=== PATIENT | male | born 1980 | race Caucasian/White ===

== ENCOUNTER 2016-10-01 02:04 | Emergency (ER) | payer OTHER ==
[~2016-10-01] VITALS: Ht 172.7 cm; Wt 61.4 kg
[2016-10-01 02:06] VITALS: Ht 172.7 cm; Wt 61.4 kg
--- NOTE | 2016-10-01 02:30 | EMERGENCY ROOM VISIT NOTE ---
History Report prepared by Gwenibtony: Hayder Waite Under the Supervision of: Dr. Ramiro Chahal D.O. First contact with patient: 02:12 Chief Complaint: MENTAL HEALTH EVALUATION Stated Complaint: BEING FOLLOWED BY NUMEROUS TRUCK FROM NEIGHBORHOOD History of Present Illness The patient is a 36 year old male who presents to the Emergency Room via [facility] Police Officers for a mental health evaluation after being found wandering around [facility] just prior to arrival. The [place] that [place] [address] because he was trying to lose a group of "trucks" who he state have been following him for the past week. The patient states that he has been being followed by a group of trucks, because they are trying to intimidate him. He believes that they may be following him because of his ex- girlfriend. The patient believed that he lost his vehicle in [place], but State Police state that they drove around for 45 minutes and were not able to locate the vehicle. The patient admits to abusing prescription narcotics. He denies any other medical issues at this time. Source of History: patient, police Onset: Just prior to arrival Position: other (Psych) Quality: other (Mental Health Evaluation) Associated Symptoms: No LOC, No fevers Review of Systems See HPI for pertinent positives and negatives. A total of ten systems were reviewed and were otherwise negative. Past Medical & Surgical Medical Problems: (1) Hx of low back pain Family History Hypertension Social History Smoking Status: Current Every Day Smoker Drug Use: other (Narcotis, poly drug abuse) Marital Status: single Housing Status: lives alone Occupation Status: employed Current/Historical Medications No Active Prescriptions or Reported Meds Allergies Coded Allergies: No Known Allergies (Unverified , 10/01/16) Physical Exam Vital Signs Date Time Temp Pulse Resp B/P Pulse Ox O2 Delivery O2 Flow Rate FiO2 10/01/16 03:43 36.8 70 137/99 94 Room Air 10/01/16 02:06 36.5 80 18 137/102 98 Room Air Physical Exam GENERAL: Awake, alert, well-appearing, in no distress HENT: Normocephalic, atraumatic. Oropharynx unremarkable. EYES: Normal conjunctiva. Sclera non-icteric. NECK: Supple. No nuchal rigidity. FROM. No JVD. RESPIRATORY: Clear to auscultation. CARDIAC: Regular rate, normal rhythm. Extremities warm and well perfused. Pulses equal. ABDOMEN: Soft, non-distended. No tenderness to palpation. No rebound or guarding. No masses. RECTAL: Deferred. MUSCULOSKELETAL: Chest examination reveals no tenderness. The back is symmetrical on inspection without obvious abnormality. There is no CVA tenderness to palpation. No joint edema. LOWER EXTREMITIES: Calves are equal size bilaterally and non-tender. No edema. No discoloration. NEURO: Normal sensorium. No sensory or motor deficits noted. SKIN: No rash or jaundice noted. PSYCH: Patient is paranoid and very anxious on examination. Medical Decision & Procedures ER Provider Diagnostic Interpretation: X ray results as stated below per my interpretation and radiologist interpretation. Other radiology results as stated below per my review and radiologist interpretation CT HEAD: No intracranial hemorrhage or skull fracture. Radiologist: Martínez Sanders M.D. Laboratory Results 10/01/16 02:40 Red Blood Count 4.95, Mean Corpuscular Volume 94.5, Mean Corpuscular Hemoglobin 34.1, Mean Corpuscular Hemoglobin Concent 36.1, Mean Platelet Volume 10.6, Neutrophils (%) (Auto) 79.7, Lymphocytes (%) (Auto) 14.4, Monocytes (%) (Auto) 5.4, Eosinophils (%) (Auto) 0.1, Basophils (%) (Auto) 0.2, Neutrophils # (Auto) 9.55, Lymphocytes # (Auto) 1.72, Monocytes # (Auto) 0.65, Eosinophils # (Auto) 0.01, Basophils # (Auto) 0.02 10/01/16 02:40 Test 10/01/16 02:40 10/01/16 02:48 White Blood Count 11.97 K/uL (4.8-10.8) Red Blood Count 4.95 M/uL (4.7-6.1) Hemoglobin 16.9 g/dL (14.0-18.0) Hematocrit 46.8 % (42-52) Mean Corpuscular Volume 94.5 fL (80-100) Mean Corpuscular Hemoglobin 34.1 pg (25-34) Mean Corpuscular Hemoglobin Concent 36.1 g/dl (32-36) Platelet Count 227 K/uL (130-400) Mean Platelet Volume 10.6 fL (7.4-10.4) Neutrophils (%) (Auto) 79.7 % Lymphocytes (%) (Auto) 14.4 % Monocytes (%) (Auto) 5.4 % Eosinophils (%) (Auto) 0.1 % Basophils (%) (Auto) 0.2 % Neutrophils # (Auto) 9.55 K/uL (1.4-6.5) Lymphocytes # (Auto) 1.72 K/uL (1.2-3.4) Monocytes # (Auto) 0.65 K/uL (0.11-0.59) Eosinophils # (Auto) 0.01 K/uL (0-0.5) Basophils # (Auto) 0.02 K/uL (0-0.2) RDW Standard Deviation 40.8 fL (36.4-46.3) RDW Coefficient of Variation 12.0 % (11.5-14.5) Immature Granulocyte % (Auto) 0.2 % Immature Granulocyte # (Auto) 0.02 K/uL (0.00-0.02) Urine Color DK YELLOW Urine Appearance CLEAR (CLEAR) Urine pH 5.5 (4.5-7.5) Urine Specific [place] 1.023 (1.000-1.030) Urine Protein 1+ (NEG) Urine Glucose (UA) NEG (NEG) Urine Ketones 1+ (NEG) Urine Occult Blood NEG (NEG) Urine Nitrite NEG (NEG) Urine Bilirubin NEG (NEG) Urine Urobilinogen NEG (NEG) Urine Leukocyte Esterase NEG (NEG) Urine WBC (Auto) 1-5 /hpf (0-5) Urine RBC (Auto) 0-4 /hpf (0-4) Urine Hyaline Casts (Auto) 5-10 /lpf (0-5) Urine Epithelial Cells (Auto) >30 /lpf (0-5) Urine Bacteria (Auto) NEG (NEG) Urine Renal Epithelial Cells /lpf (0-5) Urine Pathogenic Casts /lpf (0) Urine Mucus PRESENT (NONE PRSENT) Anion Gap 9.0 mmol/L (3-11) Est Creatinine Clear Calc Drug Dose 73.2 ml/min Estimated GFR () 89.0 Estimated GFR (Non- 76.8 BUN/Creatinine Ratio 11.2 (10-20) Calcium Level 9.3 mg/dl (8.5-10.1) Total Bilirubin 1.2 mg/dl (0.2-1) Direct Bilirubin 0.3 mg/dl (0-0.2) Aspartate Amino Transf (AST/SGOT) 32 U/L (15-37) Alanine Aminotransferase (ALT/SGPT) 34 U/L (12-78) Alkaline Phosphatase 67 U/L (45-117) Total Protein 8.1 gm/dl (6.4-8.2) Albumin 4.9 gm/dl (3.4-5.0) Thyroid Stimulating Hormone (TSH) 1.420 uIu/ml (0.300-4.500) Urine Opiates Screen POS (NEG) Urine Methadone, Qualitative NEG (NEG) Urine Barbiturates NEG (NEG) Urine Phencyclidine (PCP) Level NEG (NEG) Ur Amphetamine/Methamphetamine POS (NEG) MDMA (Ecstasy) Screen POS (NEG) Urine Benzodiazepines Screen POS (NEG) Urine Cocaine Metabolite NEG (NEG) Urine Marijuana (THC) POS (NEG) Ethyl Alcohol mg/dL < 3.0 mg/dl (0-3) Bedside Glucose 122 mg/dl (70-99) Laboratory results reviewed by me ED Course 0214: The patient was evaluated in room A5. A complete history and physical exam was performed. 0409: The patient will receive a psych evaluation from [facility]. 0600: The patient has received a full evaluation by [facility] at this time. The 302 is denies and the [facility] delegate does not believe the patient needs to be admitted to inpatient treatment. The patient will be discharged home. Medical Decision Differential Diagnosis includes; Anxiety, delusional, hallucinations, psychosis , metabolic derangement, organic process. Patient medically clear at 4:13 AM. Crisis counselor to evaluate the patient for placement. No issues currently Crisis counselor has denied 302 he's discussed evaluation with me currently the history suggests polysubstance abuse. Patient is stable for discharge Impression Primary Impression: Acute psychosis Additional Impression: Polydrug abuse Scribe Attestation The scribe's documentation has been prepared under my direction and personally reviewed by me in its entirety. I confirm that the note above accurately reflects all work, treatment, procedures, and medical decision making performed by me. Departure Information Dispostion Home / Self-Care Prescriptions No Active Prescriptions or Reported Meds Referrals No Doctor, Assigned (PCP) Patient Instructions ED Drug Abuse General, My [facility] Problem Qualifiers
[2016-10-01 02:54] LABS: BASO % 0.2 %; BASO ABS # 0.02 K/uL (0-0.2); COMPLETE YES; EOS % 0.1 %; HEMATOCRIT 46.8 % (42-52); IG% 0.2 %; LYMPH % 14.4 %; LYMPH ABS # 1.72 K/uL (1.2-3.4); MEAN CELL VOLUME 94.5 fL (80-100); MEAN CORPUSCULAR HEMOGLOBIN 34.1 pg (25-34); MEAN CORPUSCULAR HGB CONC 36.1 g/dl (32-36); MEAN PLATELET VOLUME 10.6 fL (7.4-10.4); MONO % 5.4 %; NEUT % 79.7 %; PLATELET COUNT 227 K/uL (130-400); RED BLOOD COUNT 4.95 M/uL (4.7-6.1); WHITE BLOOD COUNT 11.97 K/uL (4.8-10.8)
[2016-10-01 03:01] LABS: URINE APPEARANCE CLEAR (CLEAR); URINE COLOR DK YELLOW; URINE EPITHELIAL CELL AUTO >30 /lpf (0-5); URINE NITRITE NEG (NEG); URINE PH 5.5 (4.5-7.5); URINE SPECIFIC GRAVITY 1.023 (1.000-1.030); UROBILINOGEN NEG (NEG)
[2016-10-01 03:03] LABS: REVIEW REQ? YES
[2016-10-01 03:04] LABS: MANUAL MICROSCOPIC REQUIRED? NO
[2016-10-01 03:05] LABS: URINE BILIRUBIN NEG (NEG)
[2016-10-01 03:12] LABS: URINE MUCUS PRESENT (NONE PRSENT)
[2016-10-01 03:13] LABS: BUN/CREATININE RATIO 11.2 (10-20); CALCIUM 9.3 mg/dl (8.5-10.1); CREATININE 1.2 mg/dl (0.60-1.40); POTASSIUM 3.9 mmol/L (3.5-5.1)
[2016-10-01 03:24] LABS: THYROID STIMULATING HORMONE 1.42 uIu/ml (0.300-4.500)
[2016-10-01 03:25] LABS: BENZODIAZEPINE, URINE POS (NEG); COCAINE,URINE NEG (NEG); PHENCYCLIDINE, URINE NEG (NEG)
[2016-10-01 03:43] VITALS: TEMP 36.8
[2016-10-01 06:31] VITALS: BP 125/89; PULSE 72; O2SAT 98
--- NOTE | 2016-10-01 07:05 | DIAGNOSTIC IMAGING REPORT ---
CT SCAN OF THE BRAIN WITHOUT IV CONTRAST CLINICAL HISTORY: Change in mental status. Head injury. COMPARISON STUDY: No priors. TECHNIQUE: Unenhanced axial CT scan of the brain is performed from the vertex to the skull base. Automated dose control exposure was utilized. CT DOSE: 614.27 mGy.cm FINDINGS: Brain parenchyma: The brain parenchyma is normal in appearance. There is no hemorrhage, mass effect, or evidence of acute territorial ischemia by CT criteria. [place]-white matter is preserved. No extra-axial fluid collection is seen. Ventricles, sulci, cisterns: Normal in configuration. Intracranial vasculature: The visualized intracranial vasculature at the skull base is normal in appearance. Calvarium: There is no depressed calvarial fracture. Sinuses and mastoids: The visualized paranasal sinuses are clear. The mastoid air cells are well pneumatized. Orbits: The bony orbits are grossly intact. IMPRESSION: No acute intracranial abnormality. Electronically signed by: Edgard Olson M.D. 10/01/2016 7:04 AM Dictated Date/Time: 10/01/2016 7:03 AM
[2016-10-01] MEDS ORDERED: MULT-513 PO (20:47)
[2016-10-01] MEDS ORDERED: AMPH10TA2 PO (20:47)
[2016-10-01] MEDS ORDERED: ALPR1TAB3 PO (20:47)
[2016-10-01] MEDS ORDERED: OMEG10007 PO ×2 (20:47)
[2016-10-01] MEDS ORDERED: OXYC-57 PO (20:47)
[2016-10-04 08:56] LABS: COD UR NEGATIVE NG/ML (CUTOFF=50); HYDROCOD UR NEGATIVE NG/ML (CUTOFF=50); HYDROMOR UR NEGATIVE NG/ML (CUTOFF=50); HYDROXYETHYLFLURAZEPAM CONF NEGATIVE NG/ML (CUTOFF=50); HYDROXYMIDAZOLAM NEGATIVE NG/ML (CUTOFF=50); HYDROXYTRIAZOLAM CONF NEGATIVE NG/ML (CUTOFF=50); MORPHINE UR NEGATIVE NG/ML (CUTOFF=50); NORHYDROCODONE CONF UR NEGATIVE NG/ML (CUTOFF=50); OXYMORPH UR 144 NG/ML (CUTOFF=50); TEMAZEPAM CONF NEGATIVE NG/ML (CUTOFF=50)
== END 2016-10-01 06:32 | disposition home or self-care (01) ==
LOC: C.EDB 02:06 → C.EDA 06:32
DX: F23 Brief psychotic disorder (principal); F11.10 Opioid abuse, uncomplicated; Z82.49 Family history of ischemic heart disease and other diseases of the circulatory system; F17.200 Nicotine dependence, unspecified, uncomplicated

== ENCOUNTER 2016-10-01 19:09 | Inpatient (IN) | payer OTHER ==
[~2016-10-01] VITALS: Ht 172.7 cm; Wt 61.2 kg
[2016-10-01 20:22] LABS: ACETAMINOPHEN < 2 ug/ml (10-30)
[2016-10-01 20:34] LABS: BENZODIAZEPINE, URINE POS (NEG); COCAINE,URINE NEG (NEG); PHENCYCLIDINE, URINE NEG (NEG)
[2016-10-01] MEDS ORDERED: ALPR1TAB3 PO (20:47)
[2016-10-01] MEDS ORDERED: MULT-513 PO (20:47)
[2016-10-01] MEDS ORDERED: OXYC-57 PO (20:47)
[2016-10-01] MEDS ORDERED: OMEG10007 PO ×2 (20:47)
[2016-10-01] MEDS ORDERED: AMPH10TA2 PO (20:47)
--- NOTE | 2016-10-01 21:11 | EMERGENCY ROOM VISIT NOTE ---
History Report prepared by Chelsea: Raquel Yadav Under the Supervision of: Dr. Edgard Long M.D. 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 The patient was seen in the ED around 0200 this morning. Multiple drugs were found in his urine tox screen, including opiates, amphetamines, benzodiazepines and marijuana. He states that he takes the drugs at the recommended doses, but admits that they are not prescribed to him and that he gets them illegally. He had a negative head CT and basic labs were unremarkable. [place] police [place]. The patient states that people have been following him all of the time for the last 1.5-2 weeks. He states that he is unsure if the people are undercover police or if his ex-girlfriend's new boyfriend is trying to intimidate him. The patient denies hallucinations and insists that the people following him are real. He was evaluated by Gerda last night and a 302 was eventually denied. The patient's father expresses concern because the patient attempted to purchase a handgun twice, but was denied both times. The patient states that he wanted to buy a handgun because he felt that he was not safe at home. He denies suicidal or homicidal ideation and states that he just wants to be left alone. The patient's step-mom talked to different detox facilities today and states that she would like to have the patient admitted here for three days until he is accepted. The patient is willing to try to detox. According to the patient's brother, the patient has been taking these medications for 5-7 years now, so his family feels that he would not be able to detox on his own. The patient states that he takes Xanax to help him relax and keep himself from feeling anxious or depressed. He states that he takes Percocet for the chronic back pain that he has secondary to an old back injury. 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 The patient states that he drinks alcohol occasionally , but not heavily. He states that he drinks 1-2 shots when he gets home from work, but he denies binge drinking and blacking out. The patient has never been admitted to the hospital for mental health issues. The patient states that he has a history of hypertension and adds that he is not on any medication for it. 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 A total of 10 systems reviewed and were otherwise negative. Past Medical & Surgical Medical Problems: (1) Hx of low back pain Family History Hypertension Social History Smoking Status: Current Every Day Smoker Drug Use: other Marital Status: single Housing Status: lives alone Occupation Status: employed Current/Historical Medications Scheduled Fish Oil (Mexican Hat-3), 1 CAP PO DAILY Multivitamins/Minerals (Mvi With Minerals), 1 TAB PO DAILY Allergies Coded Allergies: No Known Allergies (Unverified , 10/01/16) Physical Exam Vital Signs Date Time Temp Pulse Resp B/P Pulse Ox O2 Delivery O2 Flow Rate FiO2 10/01/16 19:25 36.6 109 20 131/85 92 Room Air Physical Exam GENERAL: Patient is in no acute distress. HEENT: No acute trauma, normocephalic atraumatic, pupils are equal and reactive to light, mucous membranes moist, no nasal congestion, no scleral icterus. NECK: No stridor, no adenopathy, no meningismus, trachea is midline. LUNGS: Clear to auscultation bilaterally, no wheeze, no rhonchi, breath sounds equal. HEART: Without murmurs gallops or rubs, regular rate and rhythm. ABDOMEN: Soft, nontender, bowel sounds positive, no hernias, no peritonitis. EXTREMITIES: No cyanosis or edema, full range of motion of all the joints without pain or difficulty, no signs for acute trauma. NEUROLOGIC: Oriented x 3, no acute motor or sensory deficits, no focal weakness , no cerebellar deficits or pronator drift. SKIN: No rash, no jaundice, no diaphoresis. PSYCH: Cooperative, currently voluntary, slightly agitated and anxious, denies homicidal or suicidal ideation, appears to be having hallucinations/delusions. Medical Decision & Procedures Laboratory Results Test 10/01/16 19:45 Salicylates Level < 1.7 mg/dl (2.8-20) Urine Opiates Screen POS (NEG) Urine Methadone, Qualitative NEG (NEG) Acetaminophen Level < 2 ug/ml (10-30) Urine Barbiturates NEG (NEG) Urine Phencyclidine (PCP) Level NEG (NEG) Ur Amphetamine/Methamphetamine POS (NEG) MDMA (Ecstasy) Screen POS (NEG) Urine Benzodiazepines Screen POS (NEG) Urine Cocaine Metabolite NEG (NEG) Urine Marijuana (THC) POS (NEG) Ethyl Alcohol mg/dL 33.0 mg/dl (0-3) Laboratory results reviewed by me. ED Course 1942: The patient was evaluated in room A6. A complete history and physical exam was performed. 2119: The psych housing case manager informed me that [address] [place] [address] has evaluated the patient and they are going to admit him. They discussed results and treatment plan with the patient. He verbalized agreement and understanding. The patient will be evaluated for further management. Medical Decision Differential diagnoses considered include drug and alcohol abuse, psychosis, depression, anxiety, thyroid disorder, withdrawal. The patient presents with hallucinations. He has a history of illicit drug use. He feels he is being followed. His family is concerned about his recent behavior. The patient has agreed to a voluntary stay in the hospital for help. I reviewed the blood work from earlier today. The white blood cell count was slightly elevated, likely consistent with stress. Nothing else on his laboratory testing was of concern, he had a normal thyroid test. Brain CT had been done and was negative. The patient had an alcohol level drawn with this current visit, the alcohol level was slightly elevated consistent with his admitted alcohol use today. His urine tox was positive for opiates, amphetamines, ecstasy, benzos and marijuana. The patient was felt medically clear to be seen by psychiatry. He was seen by this [facility] psychiatric services. The patient has been voluntarily brought into the hospital to their floor. Impression Primary Impression: Psychosis Additional Impressions: Hallucinations Drug abuse Scribe Attestation The scribe's documentation has been prepared under my direction and personally reviewed by me in its entirety. I confirm that the note above accurately reflects all work, treatment, procedures, and medical decision making performed by me. [facility] [place] [address]) Referrals Ender Gutierrez Jr,D.O. (PCP) Patient Instructions [facility] Problem Qualifiers Primary Impression: Psychosis Psychosis type: unspecified psychosis type Qualified Codes: F29 - Unspecified psychosis not due to a substance or known physiological condition
[2016-10-01] MEDS ORDERED: MAGNESIUM HYDROXIDE SUSP 30 ML UDC PO PRN (21:30)
[2016-10-01] MEDS ORDERED: ACETAMINOPHEN 325 MG TAB PO PRN (21:30)
[2016-10-01] MEDS ORDERED: RISPERIDONE ODT 1MG PO PRN (21:30)
[2016-10-01] MEDS ORDERED: SODIUM CHLORIDE 0.65% NA SOLN 45 ML (OCEAN) PRN (21:30)
[2016-10-01] MEDS ORDERED: ALUMINUM/MAGNESIUM SUSP 30 ML UDC PO PRN (21:30)
[2016-10-01] MEDS ORDERED: hydrOXYzine HCL 25 MG TAB PO PRN (21:30)
[2016-10-01] MEDS ORDERED: BISMUTH SUBSALICYLATE PER ML OMNICELL CHARGE PO PRN (21:30)
[2016-10-01 22:05] VITALS: O2SAT 99
[2016-10-01 22:47] VITALS: BP 120/77; PULSE 77; TEMP 36.6; Ht 172.7 cm; Wt 61.2 kg
[2016-10-02 07:02] VITALS: BP_SYST 129; BP_SYST 136; BP_DIAS 84; PULSE 64; PULSE 65; TEMP 36.4
[2016-10-02] MEDS: CEROVITE ADV FORMULA TAB PO SCH (08:46)
[2016-10-02] MEDS: OMEGA-3 (PURIFIED FISH OIL) 1 GM CAP PO SCH (08:46)
[2016-10-02] MEDS ORDERED: NICOTINE POLACRILEX 2 MG GUM MT PRN (10:00)
[2016-10-02] MEDS ORDERED: NICOTINE 14 MG/24 HR TDSY TD PRN (10:00)
--- NOTE | 2016-10-02 10:35 | Psychiatric History & Physical ---
History Date of Service October 02, 2016. Identifying Data rAi Brenner is a 36-year-old male who currently lives in [facility], has a history of polysubstance abuse and presented to the ER with paranoia, thinking that certain vehicles were following him, and was found by police on the highway trying to flag down trucks. He was seen in the ER twice in one day and was ultimately admitted voluntarily. Chief Complaint "Drug use and paranoia and fear of being monitored by police and being suspicious and being followed". History of Present Illness Patient seen with ADDY Hawkins, and records reviewed. He reports he has been paranoid for about 2 weeks, thinking the police were monitoring him, and that he is being followed. He notes he is "always paranoid" about the police as he uses drugs, and worries about things like people hacking into electronic medical records and having access to his information, but for the past two weeks , has noticed people "always driving by my house, following me when I'm on the road. What really bothers me is people think I'm making it up, I've never done anything like that before." He is upset that people are accusing him of "being delusional," saying that he has "never been delusional, even when I'm using drugs." He has wondered if the people following him were undercover police, YAMILET , or "a jealous boyfriend," his ex-girlfriend's current boyfriend. He says his ex-girlfriend from several years ago called him to make amends as part of her 12 step program for alcoholism, and "I heard that speech from her a dozen times , didn't want to hear it again," and thought that her current boyfriend might have found out and got jealous. He describes "being on high alert for anyone to mess with me. There are too many variables, can't find out what happened in the last two weeks, I noticed an increased level of repeated sights of the trucks that I've mentioned driving by my house and on the road." He recognized the same trucks, but not the drivers. 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 He says his neighbors could be upset with him because he's a known drug user and they might be worried he would "do something to their children or something, I mean I wouldn't." He has a handgun which he has had for years, denies that he is carrying it around with him. He wanted to get a shotgun "because it's more visual," but says the people at the store wouldn't sell it to him. 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 When he got home, he noticed two of the trucks he'd seen following him. He decided he needed to figure out who these people were, so [place] [address] to see if they were following him. When asked what he was driving, he clarifies that this happened the following day (Sun.) after he picked up his car and started driving home. His car got stuck on the trail and he was lost and couldn' t find his way out of the [place], and eventually came out by the highway, where he was found by police trying to flag down passing cars and brought to the ER. He says he could hear the people following him, could hear their voices, and was "terrified." Per records, while in the ER, he was seen by [facility] and a 302 petition had been completed, but they did not feel he met criteria, so he was discharged. He then returned to the ER later that same day (10/01) with his mother requesting admission, per mother for detox so he could go to rehab. He admits he is having trouble remembering some parts of his story, couldn't find his car in the [place], or remember where he was or what he'd been doing. He denies any other experiences consistent with hallucinations. He admits to chronic regular drug abuse of various prescription and illicit drugs, including clonazepam, at times alprazolam, Percocet, Adderall, cocaine, alcohol, and marijuana. See details below. He denies any changes in the drugs he uses or frequency of use recently. Mood has been "always depressed," but denies anhedonia, enjoys playing music, reports disrupted/decreased sleep, good energy levels. 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 Denies manic symptoms, other than elevated mood when playing music, and in context of drug abuse. Denies OCD symptoms. He denies SI and HI, "I don't want to be a menace, hurt anyone." His primary stressor is "just the trucks chasing me." He is very distraught in trying to figure out who it might be, "I live alone, and I'm just very, very concerned for my safety." Denies anger outbursts, but reports an incident where his neighbor "saw me spanking my dog," saying he was "a little aggressive," but felt he needed to discipline his dog. He vacillates on willingness to take antidepressant medication, wanting benzodiazepines, then saying he doesn't want anything that he saw commercials for on TV, but ultimately agreed to a trial of escitalopram. Past Psychiatric History Current OP Treatment: no current treatment Prior OP Treatment: therapist (Once as a teenager when parents .), no prior treatment Prior Psych Hospitalizations: none Access to a Gun: Yes (has a 9mm handgun) Suicide Attempts: No Past Medication Trials Denies. Additional Notes Denies ever being diagnosed with a mental illness. Past Medical/Surgical History (1) Drug abuse (2) Hx of low back pain Allergies Allergies: Coded Allergies: No Known Allergies (Unverified , 10/01/16) Home Medications Scheduled Fish Oil ([place]-3), 1 CAP PO DAILY Multivitamins/Minerals (Mvi With Minerals), 1 TAB PO DAILY Family History Hypertension History of Suicide: No History of Substance Abuse: Yes (multiple family members use marijuana) Psychiatric History: No Alcohol Use Alcohol Use In Past 12 Months: Yes (4 days a week drinks vodka 2-3 shots on weekend nights and sometimes during the week "if it was a stressful day.") AUDIT Total Score: 5 Smoking Use Smoking Status: Current Every Day Smoker (10-15 hand rolled cigarettes daily) Substance History Abusing multiple prescription medications and illicit drugs for 5-7 years. Reports taking clonazepam 1mg 1-2 a day, sometimes Xanax, which he gets illegally for the past several years; takes it whenever he has it, denies ever having withdrawal when ran out, but says he "gets depressed." Also takes Percocet orally (which he gets illegally) 3x a week. Takes Adderall 10-20mg several days a week, which he also gets illegally. 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 Denies IVDU and no history of treatment. H/o arrest for marijuana around age 14. Personal History Lives in: [facility] Childhood: Parents when he was in 8th or 9th grade. They live locally and are supportive. Father is remarried. 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 Spiritual Affiliation: Raised Gnosticism, "but more a man of science." Legal History: reported (arrested for mariajuan charges as a teenager, and thinks he has charges for DUI from 10/01) Review of Systems 10 systems reviewed; positive for chronic back and wrist pain, others negative except as stated above. Examination Vital Signs Vital Signs Past 12 Hours Date Time Temp Pulse Resp B/P Pulse Ox O2 Delivery O2 Flow Rate FiO2 10/02/16 07:02 36.4 64 16 136/84 65 129/84 10/01/16 22:47 36.6 77 18 120/77 10/01/16 22:05 83 18 153/85 99 Room Air Laboratory Results Last 24 Hours Test 10/01/16 19:45 Salicylates Level < 1.7 mg/dl Urine Opiates Screen POS Urine Methadone, Qualitative NEG Acetaminophen Level < 2 ug/ml Urine Barbiturates NEG Urine Phencyclidine (PCP) Level NEG Ur Amphetamine/Methamphetamine POS MDMA (Ecstasy) Screen POS Urine Benzodiazepines Screen POS Urine Cocaine Metabolite NEG Urine Marijuana (THC) POS Ethyl Alcohol mg/dL 33.0 mg/dl Mental Examination During interview pt is: alert and oriented Appearance: appropriately dressed, disheveled, other (thin, appears older than stated age, unshaven, tattoo visible on UE, left ear pierced) Eye contact is: poor Motor behavior is: psychomotor agitation (fidgeting) Speech: normal in rate, rhythm & volume Affect: anxious Mood is: anxious Thought process: circumstantial, tangential Thought content: paranoid, delusions (of persecution) Suicidal thought are: denied Homicidal thoughts are: denied Hallucinations: denies auditory (but heard voices of people who he thought were following him yesterday, which may have been hallucinations) Cognition: language grossly intact, other (memory impaired, especially for events while under the influence) Intelligence estimated to be: average Insight: impaired Judgement: impaired Impression / Recommendations Inventory Assets Strengths: Employed, supportive family Risk Factors Assessment Male: Yes : Yes /single/: Yes Higher / Fall in social status: No Access to guns: Yes Health problems: No Mental Health Diagnoses: No Substance use disorders: Yes Previous attempt: No Previous psychiatric stay: No Hopelessness: No Smoker: Yes Protective Factors Assessment Mandaeism beliefs: No : No Responsible for young children: No Employed: Yes Stable relationships: No Supportive family: Yes Good rapport with provider: No Recommendations (1) Substance or medication-induced psychotic disorder Every 15 minute checks for safety. Encourage group attendance and participation. Continue risperidone M tab 1mg tid which was started on admission prn for psychosis, continue to educate about risks of ongoing substance abuse, and refer to inpatient rehab for treatment of polysubstance abuse. Symptoms should resolve with sobriety, and if they do not, consider primary thought disorder and need for scheduled antipsychotic. Continue home dose of fish oil supplement. Get collateral from family and schedule family meeting. (2) Generalized anxiety disorder Patient educated about diagnosis and recommended treatment (SSRI, therapy, psychiatric follow up). Recommend trial of an SSRI. Benzodiazepines contraindicated due to polysubstance abuse. Discussed a trail of escitalopram, which he agreed to. Will start 5mg qhs tonight and increase dose as tolerated. Work on healthy hoping skills and behavioral techniques for managing anxiety. (3) Drug abuse Abusing various substances, including cannabis, alcohol, prescription stimulants , benzodiazepines, opiates, and cocaine. Admits to driving while under the influence, and presented to ER with UDS positive for opiates, amphetamines/ methamphetamines, MDMA, benzos, marijuana, and alcohol shortly after driving his car into the [employer] and getting it stuck on a trail. Advised him that we will submit required [place] DOT form and that he is not medically stable to drive , and will require stabilization, sobriety, and re-evaluation by his physician before driving again. He denies that he has ever had benzodiazepine withdrawal in the past, and states that he takes benzodiazepines intermittently when they're available to him. We will however monitor vital signs and can start the withdrawal protocol if needed. (4) Nicotine addiction Continue to offer smoking cessation education, which he has refused. Offer nicotine replacement medication prn. CPT Code Initial Hospital Care: 43413 Problem Qualifiers (1) Substance or medication-induced psychotic disorder: Complication of substance-induced condition: with delusions Qualified Codes: F19.950 - Other psychoactive substance use, unspecified with psychoactive substance-induced psychotic disorder with delusions
--- NOTE | 2016-10-02 21:16 | Medical Student: BHU Only ---
Psychiatric Progress Note MEETING WITH PARENTS OF PIERRE ASH. Mr. Starr is a 36 year old man with a history of multi-drug abuse who was escorted here by the police for psychotic behavior. I met with patient's parents tonight without the patient at the end of visitors' hours. Parents reported that they had been worried about Pierre for 7-10 years for suspected alcohol, but not drug, dependence. During this time Pierre was living with his brothers, and parents said that the brothers truly knew that Pierre was abusing more than alcohol, but denied it when they asked them about Pierre. The parents believe that the brothers were protecting Pierre and also truly believed that he was functioning okay. 2 years ago, Pierre moved to live by himself, and his parents think that this has been bad for him because living with other people helps one make healthy choices. They describe their family has close and tight- knit. They said that Pierre was insecure and depressed as a child but was "kind and gentle" growing up. The parents began increasingly concerned about 2 years ago mostly due to physical changes in Pierre appearance. His father said that he had lost weight, his cheeks were "drawn in." and that he was "wasting away." They describe Pierre as a "high functioning addict" because he is such a good and hard worker. They said that when Pierre left his last job, the business called and told Pierre that there would be a position for him if he wanted to return. 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 They said that Pierre would "look over his shoulder" and openly endorse delusional thoughts. He would point out the window and trucks and tell them that they were following him. When others didn't believe him, Pierre would become argumentative which is not characteristic of his normal personality. The father's employees (also Pierre' coworkers) began to notice and told the father that "even though he's your son, something's not right." This all escalated to a phone call at 11:45PM on Saturday night (they said they never get calls from their boys that late) when Pierre was running away from the trucks on the highway. They said that Pierre was melting down, but they encouraged him to go to the next highway marker. That's when they called the State Police to pick him up at the marker and escort him here. Parents met with Pierre urias who continued to endorse delusional thoughts and refuse treatment with Risperdone. The father told Pierre that the things he said "just don't make sense to him." Both parents said that Pierre continues to be paranoid about the police, his ex-girlfriend's new boyfriend, and the staff here on the unit. However, Pierre completely trusts his parents. Pierre' father went to find the car in the [place] today and told him that the car was about 1.5- 2 miles deep into the [place] where there wasn't even a true road. Pierre' father then explained to Pierre that the lime plant operator of the property that Pierre drove on explained that there was only one set of tracks driving into the [place] and ended where Pierre' car was parked. His father also confirmed this by telling Pierre that he walked every step of the way and didn't see any other tracks in the [place] leading to his car. This seemed to resonate with Pierre because the parents said that he began to realize that perhaps what he believed about that night was not in fact true. He also explained that the police would never " waste this much man power" over one molly." Pierre began to cry. They said that Pierre feels "embarrassed" and that "he let them down." Parents reassured him that he will get through this and that he has a whole life ahead of him at the age of 36. When the father told him that he wants Pierre to take the medications , Pierre agreed and said he'll do 'whatever you tell me to do." Pierre also told his parents that he self medicates with the "perfect cocktail" that involves the mixing of multiple drugs. Pierre is now starting to get on board with the treatment plan and seeing that rehab might be a good option for him even though he had believed he could do this 'on his own' in the past. Dad reassured Pierre that he's safe on the unit. Parents were concerned for Tevis and were completely on board with our treatment plan. They agree that they believe this to be drug-induced. They understand that we cannot diagnose further (i.e. brief psychotic disorder/ schizophrenia/etc) until Pierre is sober for 2-3 months. Parents denied any family history of psychosis or any other mental health disorders, and they denied that Pierre ever acted this way while sober in the past. When they inquired about the treatments and their purpose for Pierre, I explained the use of Risperone to decrease delusional thoughts and Vysteril as needed for anxiety as well as other over the counter medications available for his comfort while on the zepeda. My sense of the interaction is that they were mainly seeking reassurance about his care. I reassured them that our goals to get him stabilized and into a rehabilitation facility where aligned. They were also concerned about potential withdrawal from any of the many drugs he was on. I reassured them that patients are heavily monitored here and that if he were to sustain withdrawal, this is the right place for him to be because the staff here are experts in this regard. The parents are glad that the 'elephant is out of the room now' about the truth about his drug use so that the can focus on getting him healthy again. The mother is researching the extent of his health insurance and said that he will likely transition into [facility] treatment facility after being discharged from [facility]. They seemed appreciative for the information and reassurance and said that they would be back tomorrow evening. Date of Service: October 02, 2016.
[2016-10-03 07:00] VITALS: BP_SYST 113; BP_SYST 132; BP_DIAS 75; BP_DIAS 83; PULSE 79; PULSE 88; TEMP 36.4
[2016-10-03 10:01] VITALS: BP 135/83; PULSE 77; TEMP 36.8
[2016-10-03] MEDS: CEROVITE ADV FORMULA TAB PO SCH (10:04)
[2016-10-03] MEDS: OMEGA-3 (PURIFIED FISH OIL) 1 GM CAP PO SCH (10:04)
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
[2016-10-03] MEDS ORDERED: ESCITALOPRAM OXALATE 10 MG TAB PO SCH (22:00)
[2016-10-04 07:00] VITALS: BP_SYST 129; BP_SYST 137; BP_DIAS 80; BP_DIAS 90; PULSE 71; PULSE 75; TEMP 36.5
[2016-10-04] MEDS: OMEGA-3 (PURIFIED FISH OIL) 1 GM CAP PO SCH (08:48)
[2016-10-04] MEDS: CEROVITE ADV FORMULA TAB PO SCH (08:48)
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
[2016-10-04 21:02] LABS: HYDROXYETHYLFLURAZEPAM CONF NEGATIVE NG/ML (CUTOFF=50); HYDROXYMIDAZOLAM NEGATIVE NG/ML (CUTOFF=50); HYDROXYTRIAZOLAM CONF NEGATIVE NG/ML (CUTOFF=50); TEMAZEPAM CONF NEGATIVE NG/ML (CUTOFF=50)
[2016-10-04] MEDS: ESCITALOPRAM OXALATE 10 MG TAB PO SCH (21:30)
[2016-10-05 07:03] VITALS: BP_SYST 123; BP_SYST 125; BP_DIAS 77; BP_DIAS 83; PULSE 56; PULSE 74; TEMP 36.7
[2016-10-05] MEDS: OMEGA-3 (PURIFIED FISH OIL) 1 GM CAP PO SCH (08:56)
[2016-10-05] MEDS: CEROVITE ADV FORMULA TAB PO SCH (08:57)
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
[2016-10-05] MEDS: ESCITALOPRAM OXALATE 10 MG TAB PO SCH (21:37)
[2016-10-06 06:50] VITALS: BP_SYST 138; BP_SYST 142; BP_DIAS 91; BP_DIAS 93; PULSE 68; PULSE 76; TEMP 36.8
[2016-10-06] MEDS: CEROVITE ADV FORMULA TAB PO SCH (08:49)
[2016-10-06] MEDS: OMEGA-3 (PURIFIED FISH OIL) 1 GM CAP PO SCH (08:49)
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
[2016-10-06 14:00] VITALS: BP 133/83; PULSE 81
[2016-10-06] MEDS: ESCITALOPRAM OXALATE 10 MG TAB PO SCH (21:15)
[2016-10-06 22:29] VITALS: BP 133/89; PULSE 72
[2016-10-07 06:25] VITALS: BP_SYST 108; BP_SYST 123; BP_DIAS 70; PULSE 70; PULSE 74; TEMP 36.6
[2016-10-07] MEDS: OMEGA-3 (PURIFIED FISH OIL) 1 GM CAP PO SCH (08:32)
[2016-10-07] MEDS: CEROVITE ADV FORMULA TAB PO SCH (08:32)
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
[2016-10-07 14:08] VITALS: BP 129/75; PULSE 87; TEMP 36.8
[2016-10-07 21:17] VITALS: BP 134/87; PULSE 64
[2016-10-07 22:02] VITALS: BP 134/87; PULSE 64
[2016-10-08 06:57] VITALS: BP_SYST 129; BP_SYST 132; BP_DIAS 78; BP_DIAS 82; PULSE 50; TEMP 36.8
[2016-10-08 06:58] VITALS: BP_SYST 129; BP_SYST 132; BP_DIAS 78; BP_DIAS 82; PULSE 50; PULSE 67; TEMP 36.8
[2016-10-08] MEDS: OMEGA-3 (PURIFIED FISH OIL) 1 GM CAP PO SCH (08:42)
[2016-10-08] MEDS: CEROVITE ADV FORMULA TAB PO SCH (08:42)
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
[2016-10-08 14:25] VITALS: BP 142/83; PULSE 73
[2016-10-08 22:05] VITALS: BP 136/87; PULSE 65; TEMP 36.5
[2016-10-09 06:54] VITALS: BP_SYST 124; BP_SYST 135; BP_DIAS 79; BP_DIAS 85; PULSE 51; PULSE 66; TEMP 36.5
[2016-10-09] MEDS: CEROVITE ADV FORMULA TAB PO SCH (08:51)
[2016-10-09] MEDS: OMEGA-3 (PURIFIED FISH OIL) 1 GM CAP PO SCH (08:51)
--- NOTE | 2016-10-09 10:17 | Discharge Instructions ---
Discharge Information Report Includes Report will include the: Discharge Instructions & Summary Admission Admission Date / Time: October 01, 2016 at 21:26 Reason for Admission: Psychosis Discharge Discharge Diagnosis / Problem: Substance induced psychosis Condition at Discharge: Good Discharge Goals Goal(s): Improve function, Improve disease control, Learn about illness, Therapeutic intervention Activity Recommendations Activity Limitations: per Instructions/Follow-up section . Instructions / Follow-Up Instructions / Follow-Up . SPECIAL CARE INSTRUCTIONS: 1. Follow through with your scheduled aftercare appointments. If unable to keep an appointment, please call to reschedule. 2. Take your medication only as prescribed. Medication should not be changed or stopped without the approval of your doctor. In the event of worsening symptoms or concerns about side effects, contact your doctor immediately. 3. Utilize new healthy coping skills, anger management skills, and stress management skills learned during your hospitalization. Journal feelings and process them with a support person. Identify stressors or situations that may result in relapse, deterioration or inappropriate behaviors and develop a plan to deal with those issues. 4. If your coping skills are ineffective and you are in crisis, contact your outpatient providers for direction. If unable to reach your providers, please call the [facility] LINE AT or go to the closest Emergency Room. 5. Avoid alcohol and un-prescribed drugs. 6. You have been provided with the Mental Health Advance Directives Pamphlet for your review. AFTERCARE APPOINTMENTS: * Please call your insurance company prior to your scheduled appointment to confirm your aftercare providers are covered. Take your insurance information to your appointments. . Discharge / Aftercare Planning Primary Care Physician: Name: Dr Gutierrez Appointment Notes: As needed, call once you are out of rehab Therapist: Name Of Therapist: None Button Bradder: Name: None . Follow-Up Care Plan for Follow-Up Care: See above. Current Hospital Diet Patient's current hospital diet: Regular Diet Discharge Diet Recommended Diet: Regular Diet Procedures Procedures Performed: No Pending Studies Pending Studies at Discharge: No Medical Emergencies . Who to Call and When: Medical Emergencies: For questions or emergencies related to your hospital stay, please contact the Inpatient Behavioral Health Unit at [phone]. A psychiatric secretary is on-call 03/12 for the Behavioral Health Unit for emergencies At any time you feel your situation is an emergency, you may also call 911 immediately. . Non-Emergent Contact Non-Emergency issues call your: Primary Care Provider, Psychiatrist, Button Bradder Advance Directives Existing Advance Directive: No Do You Have an Existing Mental: No Existing Living Will: No Existing Power of Heating Equipment Installer: No Advance Directives Info Given: To Pt/S.O. Advance Directives Reason: Declines as Mental Health Visit. Discharge Summary Admission HPI Per the Admitting provider: Patient seen with Trudy Membreno, MS3, and records reviewed. He reports he has been paranoid for about 2 weeks, thinking the police were monitoring him, and that he is being followed. He notes he is "always paranoid" about the police as he uses drugs, and worries about things like people hacking into electronic medical records and having access to his information, but for the past two weeks , has noticed people "always driving by my house, following me when I'm on the road. What really bothers me is people think I'm making it up, I've never done anything like that before." He is upset that people are accusing him of "being delusional," saying that he has "never been delusional, even when I'm using drugs." He has wondered if the people following him were undercover police, YAMILET , or "a jealous boyfriend," his ex-girlfriend's current boyfriend. He says his ex-girlfriend from several years ago called him to make amends as part of her 12 step program for alcoholism, and "I heard that speech from her a dozen times , didn't want to hear it again," and thought that her current boyfriend might have found out and got jealous. He describes "being on high alert for anyone to mess with me. There are too many variables, can't find out what happened in the last two weeks, I noticed an increased level of repeated sights of the trucks that I've mentioned driving by my house and on the road." He recognized the same trucks, but not the drivers. 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 He says his neighbors could be upset with him because he's a known drug user and they might be worried he would "do something to their children or something, I mean I wouldn't." He has a handgun which he has had for years, denies that he is carrying it around with him. He wanted to get a shotgun "because it's more visual," but says the people at the store wouldn't sell it to him. 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 When he got home, he noticed two of the trucks he'd seen following him. He decided he needed to figure out who these people were, so [place] [address] to see if they were following him. When asked what he was driving, he clarifies that this happened the following day (Sun.) after he picked up his car and started driving home. His car got stuck on the trail and he was lost and couldn' t find his way out of the [place], and eventually came out by the highway, where he was found by police trying to flag down passing cars and brought to the ER. He says he could hear the people following him, could hear their voices, and was "terrified." Per records, while in the ER, he was seen by [facility] and a 302 petition had been completed, but they did not feel he met criteria, so he was discharged. He then returned to the ER later that same day (10/01) with his mother requesting admission, per mother for detox so he could go to rehab. He admits he is having trouble remembering some parts of his story, couldn't find his car in the [place], or remember where he was or what he'd been doing. He denies any other experiences consistent with hallucinations. He admits to chronic regular drug abuse of various prescription and illicit drugs, including clonazepam, at times alprazolam, Percocet, Adderall, cocaine, alcohol, and marijuana. See details below. He denies any changes in the drugs he uses or frequency of use recently. Mood has been "always depressed," but denies anhedonia, enjoys playing music, reports disrupted/decreased sleep, good energy levels. 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 Denies manic symptoms, other than elevated mood when playing music, and in context of drug abuse. Denies OCD symptoms. He denies SI and HI, "I don't want to be a menace, hurt anyone." His primary stressor is "just the trucks chasing me." He is very distraught in trying to figure out who it might be, "I live alone, and I'm just very, very concerned for my safety." Denies anger outbursts, but reports an incident where his neighbor "saw me spanking my dog," saying he was "a little aggressive," but felt he needed to discipline his dog. He vacillates on willingness to take antidepressant medication, wanting benzodiazepines, then saying he doesn't want anything that he saw commercials for on TV, but ultimately agreed to a trial of escitalopram. Admission Exam Per the Admitting provider: Please see admission H&P. Hospital Course (1) Substance or medication-induced psychotic disorder Every 15 minute checks for safety. Encourage group attendance and participation. Continue risperidone M tab 1mg tid which was started on admission prn for psychosis, continue to educate about risks of ongoing substance abuse, and refer to inpatient rehab for treatment of polysubstance abuse. Symptoms should resolve with sobriety, and if they do not, consider primary thought disorder and need for scheduled antipsychotic. Continue home dose of fish oil supplement. Get collateral from family and schedule family meeting. 10/03 - Continue risperidone as needed. Continue to educate about the risks of substance abuse. Referred to rehabilitation. 10/04 - Psychosis has resolved. Refer to inpatient rehabilitation for substance abuse treatment. 10/05 - Met with [facility] who will get back to us about referrals and bed availability 10/06 - awaiting bed availability for inpt rehab, psychosis remains resolved, anxiety lessening 10/08 - No bed today at [facility]. May need IOP in the interim. (2) Generalized anxiety disorder Patient educated about diagnosis and recommended treatment (SSRI, therapy, psychiatric follow up). Recommend trial of an SSRI. Benzodiazepines contraindicated due to polysubstance abuse. Discussed a trail of escitalopram, which he agreed to. Will start 5mg qhs tonight and increase dose as tolerated. Work on healthy hoping skills and behavioral techniques for managing anxiety. 10/03 Consider increase in escitalopram to 10 mg daily tomorrow. Encourage group attendance, work on healthy coping skills, and discharge safety plan. 10/04 Increase escitalopram to 10 mg daily. 10/06 Pt weary about medication for anxiety even if a non controlled med like a SSRI. Pt wants to review with family and reflect further on this and expressing ambivalence towards lexapro. He denied s/e to date. He is concerned that he has been abusing controlled meds and weary of using any mediation to try to alleviate his anxiety. Provided education about how lexapro as a SSRI works differently then the benzodiazepines with pt preferring to keep it as an active med for now but expressed a possibility of deciding against taking it this evening. He plans to review with family to take in their viewpoints. 10/09 Escitalopram was discontinued, and the patient continues to decline SSRI or other medication for anxiety. Remains willing for substance abuse treatment. Anxiety may improve with sobriety, but if not, may need to revisit SSRI medication versus psychotherapy. (3) Drug abuse Abusing various substances, including cannabis, alcohol, prescription stimulants , benzodiazepines, opiates, and cocaine. Admits to driving while under the influence, and presented to ER with UDS positive for opiates, amphetamines/ methamphetamines, MDMA, benzos, marijuana, and alcohol shortly after driving his car into the [place] and getting it stuck on a trail. Advised him that we will submit required [place] DOT form and that he is not medically stable to drive , and will require stabilization, sobriety, and re-evaluation by his physician before driving again. He denies that he has ever had benzodiazepine withdrawal in the past, and states that he takes benzodiazepines intermittently when they're available to him. We will however monitor vital signs and can start the withdrawal protocol if needed. 10/03 No signs of withdrawal, vital signs are stable. Continue to monitor. 10/06 Blood pressure elevated some, pulse normal denied other signs of withdrawal, continue to monitor and obtain vs qshift for now pt awaiting placement for inpt rehab (4) Nicotine addiction Continue to offer smoking cessation education, which he has refused. Offer nicotine replacement medication prn. 10/06 - pt continues to refuse nicotine replacement prn options being offered, pt weary about s/e t but also weary about using such a agent when aiming for avoidance of substances. Education about nicotine replacement options provided. Also reviewed Chantix and Wellbutrin xl. Pt declined both options as well, weary of possible s/e but also weary of using a medication to address substance/ dependence concerns. 10/09 - patient denying urges to smoke, and declining offers for nicotine replacement, not feeling that he needs it. He has been referred for substance abuse treatment. Risk Factors Assessment Male: Yes : Yes /single/: Yes Higher / Fall in social status: No Access to guns: No (parents secured) Health problems: No Mental Health Diagnoses: No Substance use disorders: Yes Previous attempt: No Family history of suicide: No Previous psychiatric stay: No Hopelessness: No Smoker: Yes Protective Factors Assessment Alevism beliefs: No : No Responsible for young children: No Employed: Yes Stable relationships: No Supportive family: Yes Good rapport with provider: No Absence of risk factors above: Yes (risk factors were mitigated by admission to the inpatient unit, education about his diagnoses including the risks of ongoing substance abuse, involvement in groups and therapy on the unit, involving his family, ensuring that his gun was secured prior to discharge, referring him for substance abuse treatment, offering medication for anxiety disorder which he ultimately declined, working on healthy coping skills and his discharge safety plan. The patient's mood has improved, psychotic symptoms have resolved, he has been active in his treatment here, is motivated for sobriety, and was referred for inpatient rehabilitation and intensive outpatient substance abuse treatment as a backup plan while awaiting a bed. His family is supportive and feel comfortable with discharge today. He will be staying with his parents until he goes to rehabilitation when a bed becomes available. He is performing his ADLs independently here, eating and sleeping well, and has been advised not to drive until he has achieved a period of sobriety. He is no longer at acute risk of harm to himself or others, so can be managed as an outpatient at this time.) Day of Discharge Assessment Hospital course: The patient's psychotic symptoms resolved over the first couple of days in the hospital. He received only 1 dose of risperidone 1 mg on 10/02/2016. His drug screen was initially positive for opiates, amphetamines/methamphetamine, MDMA, benzodiazepines, marijuana, and ethyl alcohol level was 33. Confirmatory tests were positive for marijuana, clonazepam, and alprazolam, nor oxycodone, oxycodone, oxymorphone, amphetamines, and methamphetamines. MDMA confirmatory was negative. He did not endorse symptoms of withdrawal, was placed on recovery protocol and voiced willingness to get substance abuse treatment. He initially had poor insight into his psychosis, but after talking with his family who gave him details about his behavior prior to admission, including the fact that his car was found 1.5 [address] [facility], and there were no tire tracks besides his. He was able to develop insight into the etiology of his psychotic symptoms, and voiced willingness for sobriety and for substance abuse treatment. He was initially started on escitalopram due to his reports of generalized anxiety disorder symptoms predating his substance abuse, but after taking it for 3 days, asked to discontinue it, stating that he did not want to be on medication. He did not require when necessary medication other than the one time dose of risperidone on admission. He was able to attend and participate appropriately in groups, worked on healthy coping skills, and completed a discharge safety plan. He met with staff from the [facility] service unit for financial assistance for substance abuse treatment, and referrals were made to rehabilitation facilities. His family was supportive and visited frequently, and participated in a family meeting with the social welfare research worker on 10/04/2016. They processed his psychotic symptoms and substance abuse , and reported that he had at least 1 previous episode of psychosis, likely due to substance abuse. He told them where he had hidden drugs and alcohol at home so that his father could remove them. His family also agreed to secure his gun prior to discharge. His family was supportive of him getting substance abuse treatment. Day of discharge assessment: The patient states that his mood is "pretty good," and he feels much improved from admission. He denies all symptoms of psychosis, depression, suicidal thoughts, and thoughts of harming others. He is hopeful that he will get a bed at rehabilitation soon, and remains willing to attend substance abuse treatment and work on his sobriety. He plans to stay with his parents after discharge, and states he is willing to do "whatever it takes" to reassure his family that he is motivated to stay sober. He is willing to do intensive outpatient treatment in the interim if there is a wait for a rehabilitation bed. Well nourished, well developed WM appearing stated age. Casually dressed and adequately groomed. Calm and cooperative. Seated in NAD, with fair eye contact and no abnormal movements. Speech is normal rate, volume, and tone. Mood is "pretty good," and affect is stable and congruent. Thoughts are linear , logical and goal directed. The patient denied suicidal and homicidal ideation and was able to safety plan. No paranoia, delusions, or hallucinations , and did not appear to be responding to internal stimuli. Cognition was grossly intact. Alert and oriented to person, place and time. Intelligence is consistent with level of education. Insight and and judgment are fair. Laboratory Test 10/01/16 19:45 Salicylates Level < 1.7 Urine Opiates Screen POS Urine Methadone, Qualitative NEG Acetaminophen Level < 2 Urine Barbiturates NEG Urine Phencyclidine (PCP) Level NEG Ur Amphetamine/Methamphetamine POS MDMA (Ecstasy) Screen POS Urine Hydroxyalprazolam Confirm 125 Urine Benzodiazepines Screen POS 7-Amino Clonazepam Level >2000 Urine Nordiazepam Confirmation NEGATIVE Urine Hydroxyethylflurazepam Level NEGATIVE Urine Lorazepam (GC/MS) NEGATIVE Urine Oxazepam Confirm (GC/MS) NEGATIVE Urine Temazepam Confirmation NEGATIVE Urine Hydroxytriazolam Confirmation NEGATIVE Urine Hydroxymidazolam Confirmation NEGATIVE Urine Cocaine Metabolite NEG Urine Marijuana (THC) POS Urine Marijuana (THC Carboxy Acid) 166 Ethyl Alcohol mg/dL 33.0 Total Time Total Time Spent (min): Greater than 30 minutes Total Time Included: examination of the patient, discharge planning, medication reconciliation Tobacco Cessation at Discharge Smoking Status: Current Every Day Smoker (10-15 hand rolled cigarettes daily) FDA approved Prescription: declined med & out pt counseling (Declined nicotine replacement and medication, but has been referred for substance abuse treatment and is planning to quit smoking.) Problem Qualifiers (1) Substance or medication-induced psychotic disorder: Complication of substance-induced condition: with delusions Qualified Codes: F19.950 - Other psychoactive substance use, unspecified with psychoactive substance-induced psychotic disorder with delusions
[2016-10-09 14:52] VITALS: BP 145/90; PULSE 80
== END 2016-10-09 16:40 | disposition home or self-care (01) | DRG 897 ==
LOC: C.EDB 19:11 → C.MHU 21:26
PROVIDERS: ADMIT Psychiatry & Neurology Child & Adolescent Psychiatry; ATTEND Psychiatry & Neurology Psychiatry
DX: F19.950 Other psychoactive substance use, unspecified with psychoactive substance-induced psychotic disorder with delusions (principal); F41.1 Generalized anxiety disorder; F12.10 Cannabis abuse, uncomplicated; F10.10 Alcohol abuse, uncomplicated; F15.10 Other stimulant abuse, uncomplicated; F11.10 Opioid abuse, uncomplicated; F14.10 Cocaine abuse, uncomplicated; F17.210 Nicotine dependence, cigarettes, uncomplicated; Z81.3 Family history of other psychoactive substance abuse and dependence; Z79.899 Other long term (current) drug therapy